=== PATIENT | female | born 1955 | race Caucasian/White ===

== ENCOUNTER 2016-12-12 19:14 | Inpatient (IN) | payer BC ==
[2016-12-12] MEDS ORDERED: NS 0.9% 1000 ML* 2,000 ML IV ONE (20:27)
[2016-12-12] MEDS ORDERED: Ondansetron INJ* 2 MG/ML VIAL IV ONE (20:27)
[2016-12-12] MEDS ORDERED: Famotidine IV* 10 MG/ML 2 ML (20 mg) IV ONE (20:27)
--- NOTE | 2016-12-12 20:38 | RAD ---
INDICATION: Cough. COMPARISON: Comparison is made with a prior chest x-ray study from January 27, 2006. TECHNIQUE: A portable view of the chest was obtained. FINDINGS: Cardiac and mediastinal contours appear to be within normal limits. The lungs are clear. No pleural effusion is seen. IMPRESSION: NO EVIDENCE FOR ACUTE DISEASE.
[2016-12-12 20:39] LABS: Hematocrit 33 % (35-47); Hemoglobin 11.1 g/dl (12.0-16.0); Mean Corpuscular HGB Conc 34 g/dl (31-36); Mean Corpuscular Hemoglobin 29 pg (27-31); Mean Corpuscular Volume 85 fL (80-97); Mean Platelet Volume 8 um3 (7.4-10.4); Red Blood Count 3.84 10^6/ul (4.0-5.4); Red Cell Distribution Width 12 % (10.5-15); White Blood Count 17.7 10^3/ul (3.5-10.8)
[2016-12-12 20:55] LABS: ALT 59 U/L (7-52); AST 42 U/L (13-39); Albumin 3.3 g/dL (3.2-5.2); Alkaline Phosphatase 78 U/L (34-104); Amylase 13 U/L (29-103); Anion Gap 7 mmol/L (2-11); BUN/Creatinine Ratio 7.3 (8-20); Blood Urea Nitrogen 4 mg/dL (6-24); CO2 Carbon Dioxide 23 mmol/L (22-32); Calcium 8.6 mg/dL (8.6-10.3); Chloride 90 mmol/L (101-111); EGFR African American 144.5 (>60); EGFR Non-African American 112.4 (>60); Globulin 3.5 g/dL (2-4); Glucose 152 mg/dL (70-100); Lipase < 10 U/L (11.0-82.0); Potassium 3.6 mmol/L (3.5-5.0); Sodium 120 mmol/L (133-145); Total Protein 6.8 g/dL (6.4-8.9)
--- NOTE | 2016-12-12 21:53 | ED ---
Albert Wyman Billy, scribed for Ramirez Shen MD on 12/12/16 at 2023 . Complex/Multi-Sys Presentation - HPI Summary HPI Summary: Patient is a 61 year-old female coming to [facility] for evaluation of one month of intermittent flu-like symptoms. She describes decreased appetite, nausea, fatigue, and epigastric pain. Her symptoms were worse today; she presents with fever. Nothing has made her symptoms better/worse. She states that she has had similar symptoms in the past related to "dehydration." Last BM several days ago. - History Of Current Complaint Chief Complaint: EDFluSymptoms Time Seen by Provider: 12/12/16 20:07 Hx Obtained From: Patient Onset/Duration: Gradual Onset, Lasting Weeks, Still Present Timing: Intermittent, Lasting: Severity Currently: Moderate Severity Initially: Moderate Aggravating Factor(s): none Alleviating Factor(s): none Associated Signs And Symptoms: Positive: Nausea, Abdominal Pain, Decreased Oral Intake, Fever, Other - fatigue. Negative: Vomiting, Diarrhea - Allergies/Home Medications Allergies/Adverse Reactions: Allergies Allergy/AdvReac Type Severity Reaction Status Date / Time Sulfa Antibiotics Allergy Hives Verified 01/06/15 20:53 PMH/Surg Hx/FS Hx/Imm Hx Endocrine/Hematology History: Denies: Hx Diabetes Cardiovascular History: Denies: Hx Hypertension Neurological History: Reports: Hx Migraine - Surgical History Surgery Procedure, Year, and Place: lumpectomy Infectious Disease History: No Infectious Disease History: Denies: Traveled Outside the [place] in Last 30 Days - Family History Known Family History: Positive: Cardiac Disease - mother, Other - cancer - Social History Alcohol Use: None Substance Use Type: Reports: None Smoking Status (MU): Never Smoked Tobacco Review of Systems Positive: Fever, Fatigue Positive: Abdominal Pain, Nausea, Other - decreased appetite. Negative: Vomiting, Diarrhea All Other Systems Reviewed And Are Negative: Yes Physical Exam - Summary Physical Exam Summary: VITAL SIGNS: Reviewed. GENERAL: Patient is a well developed and nourished female who is lying comfortable in the stretcher. Patient is not in any acute respiratory distress. HEAD AND FACE: No signs of trauma. No ecchymosis, hematomas or skull depressions. No sinus tenderness. EYES: PERRLA, EOMI x 2, No injected conjunctiva, no nystagmus. EARS: Hearing grossly intact. Ear canals and tympanic membranes are within normal limits. MOUTH: Dry nasal and oral mucosa. NECK: Supple, trachea is midline, no adenopathy, no JVD, no carotid bruit, no c- spine tenderness, neck with full ROM. CHEST: Symmetric, no tenderness at palpation LUNGS: Clear to auscultation bilaterally. No wheezing or crackles. CVS: Regular rate and rhythm, S1 and S2 present, no murmurs or gallops appreciated. ABDOMEN: Soft, non-tender. No signs of distention. No rebound no guarding, and no masses palpated. Bowel sounds are normal. EXTREMITIES: FROM in all major joints, no edema, no cyanosis or clubbing. NEURO: Alert and oriented x 3. No acute neurological deficits. Speech is normal and follows commands. SKIN: Dry and warm Triage Information Reviewed: Yes Vital Signs On Initial Exam: Initial Vitals Temp Pulse Resp BP Pulse Ox 102.1 F 94 16 124/62 98 12/12/16 19:26 12/12/16 19:26 12/12/16 19:26 12/12/16 19:26 12/12/16 19:26 Vital Signs Reviewed: Yes Diagnostics - Vital Signs Vital Signs Temp Pulse Resp BP Pulse Ox 12/12/16 19:26 102.1 F 94 16 124/62 98 - Laboratory Lab Results: Lab Results 12/12/16 Range/Units 20:30 WBC 17.7 H (3.5-10.8) 10^3/ul RBC 3.84 L (4.0-5.4) 10^6/ul Hgb 11.1 L (12.0-16.0) g/dl Hct 33 L (35-47) % MCV 85 (80-97) fL MCH 29 (27-31) pg MCHC 34 (31-36) g/dl RDW 12 (10.5-15) % Plt Count 162 (150-450) 10^3/ul MPV 8 (7.4-10.4) um3 Neut % (Auto) 89.5 H (38-83) % Lymph % (Auto) 3.8 L (25-47) % [place] % (Auto) 6.1 (1-9) % Eos % (Auto) 0.2 (0-6) % Baso % (Auto) 0.4 (0-2) % Absolute Neuts (auto) 15.9 H (1.5-7.7) 10^3/ul Absolute Lymphs (auto) 0.7 L (1.0-4.8) 10^3/ul Absolute Monos (auto) 1.1 H (0-0.8) 10^3/ul Absolute Eos (auto) 0 (0-0.6) 10^3/ul Absolute Basos (auto) 0.1 (0-0.2) 10^3/ul Absolute Nucleated RBC 0 10^3/ul Nucleated RBC % 0 Result Diagrams: 12/12/16 20:30 12/12/16 20:30 Lab Statement: Any lab studies that have been ordered have been reviewed, and results considered in the medical decision making process. - Radiology CXR Xray Interpretation: No Acute Changes Radiology Interpretation Completed By: Radiologist Complex Multi-Symp Course/Dx Assessment/Plan: Patient is a 61 year-old female coming to [facility] for evaluation of one month of intermittent flu-like symptoms. She describes decreased appetite , nausea, fatigue, and epigastric pain. Her symptoms were worse today; she presents with fever. Nothing has made her symptoms better/worse. She states that she has had similar symptoms in the past related to "dehydration." Last BM several days ago. Bloodwork shows WBC of 17.7, H&H of 11.1/33, and platelets of 162. Sodium of 120, chloride 90, glucose 152, CRP 200. Influenza A and B are negative, rapid stress negative. CXR shows no acute intrathoracic pathology. In the ED course, pt was given 2L of fluids. Patient has not been unable to give urine due to dehydration. At this point, since the patient is hyponatremic, increased CRP, increased WBC, I discussed my physical exam findings with Dr. Kimbrough who accepted the patient for admission. The patient is hemodynamically stable, A&Ox3. I did not start any antibiotics since I do not know the source of the infection. Dr. Kimbrough is aware and he agrees. - Diagnoses Differential Diagnoses/HQI/PQRI: Other - URI, Flu, Pharyngitis, Provider Diagnoses: Hyponatremia, Dehydration, Leukocytosis - Physician Notifications Discussed Care Of Patient With: Dr. Kimbrough (hospitalist) @ 2130: accepts admission. Discharge - Discharge Plan Condition: Stable Disposition: ADMITTED TO [facility] Referrals: Keegan Arteaga, [employer] [Primary Care Provider] - The documentation as recorded by the Albert clay Billy accurately reflects the service I personally performed and the decisions made by me, Ramirez Shen MD.
[2016-12-12] MEDS ORDERED: Ondansetron INJ* 2 MG/ML VIAL IV PRN (22:35)
[2016-12-12] MEDS ORDERED: Acetaminophen TAB* 325 MG PO PRN (22:35)
[2016-12-12] MEDS: NS 0.9% w/ 20 Meq KCL 1000 ML* 1,000 ML IV SCH (23:09)
[2016-12-13] MEDS: cefTRIAXone VIAL(*) 1,000 MG in NS 0.9% 50 ML* 50 ML IVPB SCH (01:24)
[2016-12-13] MEDS: Azithromycin IV(*) 500 MG in NS 0.9% 250 ML* 250 ML IVPB SCH (01:51)
--- NOTE | 2016-12-13 06:29 | HP ---
ADMISSION HISTORY AND PHYSICAL: DATE OF ADMISSION: 12/12/16 CHIEF COMPLAINT: Flu-like symptoms. HISTORY OF PRESENT ILLNESS: Ms. Spangler is a 61-year-old woman with minimal past medical history who complains of waxing and waning of sore throat, cough, and runny nose for the past month. Initially, she had nasal congestion, sneezing, which evolved into a cough and sore throat. The cough was not associated with shortness of breath and fever. Since the cough is not resolving in the last week, she has been more exhausted and complains of myalgias. She has had some night sweats. The cough is largely resolved. The patient also has had one episode of syncope 3 days ago when she got up from the bed to go to the bathroom at night. She felt dizzy and presyncopal and fell on to the bed and slipped to the floor. Her helped her lie flat on the floor and it is unclear whether she was fully unconscious or just not talking. After a few minutes, she was talking again and she was able to get herself back to bed. The patient does report some pain in her left lower ribcage, occurred after lying on the couch for a few days. She has been taking ibuprofen for this pain. There is some slight discomfort in her chest, which was worse with deep breath but she denies that this is pain. PAST MEDICAL HISTORY: She denies a history of asthma. She has had hyponatremia at times between levels 120 to 131 in 2013 to 2014, which have not been explained. She also reports a history of Lyme disease. PAST SURGICAL HISTORY: Lumpectomy in the left breast for benign breast mass. MEDICATIONS ON ADMISSION: 1. Calcium with vitamin D one tab p.o. q. day. 2. Premarin cream per vagina once a week. 3. Ibuprofen as needed. ALLERGIES: SULFA DRUGS, SULFONAMIDES. SOCIAL HISTORY: She works as an artist. She is . She has no children. She quit tobacco, age 31. Drinks alcohol rarely. No recreational drugs. FAMILY HISTORY: Notable for mother of heart failure. Father of multiple myeloma. One brother brother is alive with colon cancer. One brother of esophageal cancer. She has a grandmother with esophageal cancer and mother had breast cancer. REVIEW OF SYSTEMS: The patient denies any fevers or anorexia. The patient denies any chest pain other than mentioned above. The patient denies any hemoptysis. The patient denies any nausea, vomiting, diarrhea, constipation or abdominal pain. The patient denies any focal weakness, but feels weak all over. Remainder of the 14- point review of systems negative other than mentioned in the HPI. PHYSICAL EXAMINATION GENERAL: She is alert and in no acute distress. VITAL SIGNS: Temperature 38.9, pulse 94, respirations 16, blood pressure is 124 /62, and oxygen saturation 98%. HEENT: Head is normocephalic, atraumatic. Sclerae are anicteric. Pupils are equal, round, reactive to light and accommodation. Oropharynx is moist, no lesions. NECK: No JVD, no carotid bruits, no thyromegaly. LUNGS: There are rales at the right base. No wheezes. HEART: Regular rate and rhythm. No murmurs or gallops. ABDOMEN: Soft, nontender and nondistended. Positive bowel sounds. No hepatosplenomegaly. EXTREMITIES: No peripheral edema. Dorsalis pedis pulses are 1+ bilaterally. NEUROLOGIC: Cranial nerves II through XII are intact. Motor strength is 5/5 throughout. Deep tendon reflexes are symmetric. LABORATORY DATA: Sodium 120, potassium 3.6, chloride 90, bicarb 23, BUN 4, creatinine 0.55, glucose 152. Calcium 8.6, albumin 3.3, AST 42, ALT 59, bilirubin 1.3. CRP 200.9, amylase 13, lipase 10. White count 17.7, hemoglobin 11.1, hematocrit 33%, platelets 162. Influenza A and B negative. Rapid strep is negative. Portable chest shows no infiltrates or effusions. ASSESSMENT AND PLAN: A 61-year-old woman presenting with waxing and waning flu - like symptoms and hyponatremia over the last month. The patient appears to be have pneumonia clinically on exam, although this is not seen on chest x-ray. She will have repeat chest x-ray PA and lateral in the morning. 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 She also seems prone to dehydration , hyponatremia based on her history. The patient will be admitted to hospital for observation. She has hyponatremia and hypovolemia, so this should be corrected with repletion of volume with crystalloids. We will check her serum osmolality and sodium in the morning. The patient also has elevated white count likely due to pneumonia. It is possible that she has something more concerning such as leukemia with her night sweats and prolonged illness and elevated white count. For now, she will be treated for pneumonia with ceftriaxone and azithromycin and white count will be rechecked in the morning. CODE STATUS: Full. DVT prophylaxis will be with embolism stockings. If her sodium improves and she is tolerating liquids tomorrow, she can likely be discharged to home. CC: Dr. Mohr in [facility]* [id number]/[facility] #: [id number] [facility]
[2016-12-13 06:32] LABS: Hematocrit 31 % (35-47); Hemoglobin 10.5 g/dl (12.0-16.0); Mean Corpuscular HGB Conc 34 g/dl (31-36); Mean Corpuscular Hemoglobin 29 pg (27-31); Mean Corpuscular Volume 86 fL (80-97); Mean Platelet Volume 8 um3 (7.4-10.4); Red Blood Count 3.65 10^6/ul (4.0-5.4); Red Cell Distribution Width 13 % (10.5-15); White Blood Count 14.8 10^3/ul (3.5-10.8)
[2016-12-13 06:44] LABS: BUN/Creatinine Ratio 8.9 (8-20); EGFR African American 182.2 (>60); EGFR Non-African American 141.6 (>60); Potassium 3.7 mmol/L (3.5-5.0)
--- NOTE | 2016-12-13 08:22 | RAD ---
INDICATION: Right lower lobe rales, pneumonia. COMPARISON: Comparison is made with prior chest x-ray studies from January 27, 2006 and December 12, 2016. TECHNIQUE: Dual-energy PA and lateral views of the chest were obtained. FINDINGS: The heart is within normal limits in size. Mediastinal and hilar contours appear within normal limits. There is a infiltrate present at the right lung base which appears new with a convex superior border. The left lung appears clear. There is a trace right pleural effusion. IMPRESSION: NEW MASSLIKE INFILTRATE AT THE RIGHT LUNG BASE. RECOMMEND FOLLOW-UP CHEST X-RAYS TO RESOLUTION.
[2016-12-13] MEDS: NS 0.9% w/ 20 Meq KCL 1000 ML* 1,000 ML IV SCH (09:02)
--- NOTE | 2016-12-13 16:43 | PN ---
Subjective Date of Service: 12/13/16 Interval History: Pt is feeling better than when she first got here. She is occasionally bringing up whitish sputum. She has also been having loose stools today. Objective Active Medications: Acetaminophen (Tylenol Tab*) 650 mg PO Q4H PRN PRN Reason: FEVER/HEADACHE Last Admin: 12/13/16 10:57 Dose: 650 mg Potassium Chloride/Sodium Chloride (Ns 0.9% W/ 20 Meq Kcl 1000 Ml*) 1,000 mls @ 150 mls/hr IV PER RATE JAYLEN Last Admin: 12/13/16 09:02 Dose: 150 mls/hr Ceftriaxone Sodium 1,000 mg/ (Sodium Chloride) 50 mls @ 200 mls/hr IVPB Q24H JAYLEN Last Admin: 12/13/16 01:24 Dose: 200 mls/hr Azithromycin 500 mg/ Sodium (Chloride) 250 mls @ 250 mls/hr IVPB Q24H JAYLEN Last Admin: 12/13/16 01:51 Dose: 250 mls/hr Ondansetron HCl (Zofran Inj*) 4 mg IV Q6H PRN PRN Reason: NAUSEA Last Admin: 12/13/16 02:35 Dose: 4 mg Vital Signs 12/12/16 12/12/16 12/13/16 23:00 23:30 00:51 Temperature 97.7 F Pulse Rate 76 70 68 Respiratory 18 Rate Blood Pressure 110/64 107/61 106/52 (mmHg) O2 Sat by Pulse 97 95 97 Oximetry 12/13/16 12/13/16 12/13/16 04:10 07:28 11:26 Temperature 99.6 F 99.1 F 99.4 F Pulse Rate 72 76 78 Respiratory 16 18 18 Rate Blood Pressure 103/45 121/60 112/60 (mmHg) O2 Sat by Pulse 99 99 98 Oximetry 12/13/16 15:29 Temperature 98.2 F Pulse Rate 78 Respiratory 16 Rate Blood Pressure 118/64 (mmHg) O2 Sat by Pulse 98 Oximetry Oxygen Devices in Use Now: None Appearance: Middle aged female sitting up in bed, NAD Eyes: No Scleral Icterus Ears/Nose/Mouth/Throat: Mucous Membranes Moist Respiratory: Symmetrical Chest Expansion and Respiratory Effort, - - diminished breath sounds R base Cardiovascular: NL Sounds; No Murmurs; No JVD, RRR, No Edema Abdominal: NL Sounds; No Tenderness; No Distention Extremities: No Clubbing, Cyanosis Skin: No Rash or Ulcers, No Nodules or Sclerosis Neurological: Alert and Oriented x 3 Result Diagrams: 12/13/16 06:10 12/13/16 16:42 Additional Lab and Data: Lab Results 12/12/16 Range/Units 20:30 WBC 17.7 H (3.5-10.8) 10^3/ul RBC 3.84 L (4.0-5.4) 10^6/ul Hgb 11.1 L (12.0-16.0) g/dl Hct 33 L (35-47) % MCV 85 (80-97) fL MCH 29 (27-31) pg MCHC 34 (31-36) g/dl RDW 12 (10.5-15) % Plt Count 162 (150-450) 10^3/ul MPV 8 (7.4-10.4) um3 Neut % (Auto) 89.5 H (38-83) % Lymph % (Auto) 3.8 L (25-47) % [place] % (Auto) 6.1 (1-9) % Eos % (Auto) 0.2 (0-6) % Baso % (Auto) 0.4 (0-2) % Absolute Neuts (auto) 15.9 H (1.5-7.7) 10^3/ul Absolute Lymphs (auto) 0.7 L (1.0-4.8) 10^3/ul Absolute Monos (auto) 1.1 H (0-0.8) 10^3/ul Absolute Eos (auto) 0 (0-0.6) 10^3/ul Absolute Basos (auto) 0.1 (0-0.2) 10^3/ul Absolute Nucleated RBC 0 10^3/ul Nucleated RBC % 0 Assess/Plan/Problems-Billing Ms Spangler is a 61 yo F who has a h/o asthma who presented to the ER with c/o flu-like symptoms and was admitted for community acquired pneumonia and hyponatremia. - Patient Problems (1) CAP (community acquired pneumonia) Current Visit: Yes Status: Acute Code(s): J18.9 - PNEUMONIA, UNSPECIFIED ORGANISM SNOMED Code(s): 994177829 Comment: Pt's WBC count is trending down. Check s pneumo and legionella urinary antigens. Obtain sputum culture. Continue ceftriaxone and azithromycin. Recheck CBC tomorrow. (2) Hyponatremia Current Visit: Yes Status: Acute Code(s): E87.1 - HYPO-OSMOLALITY AND HYPONATREMIA SNOMED Code(s): 51713424 Comment: Improving. Likely secondary to dehydration as her Na level improved with hydration. Will get follow up level tomorrow AM. Urine studies have been ordered however the will be obtained after she was hydrated. (3) DVT prophylaxis Current Visit: Yes Status: Acute Code(s): WIK7985 - SNOMED Code(s): 103090388 (4) Full code status Current Visit: Yes Status: Acute Code(s): Z78.9 - OTHER SPECIFIED HEALTH STATUS SNOMED Code(s): 282260135
[2016-12-13 17:07] LABS: Potassium 3.8 mmol/L (3.5-5.0)
[2016-12-13 17:33] LABS: Urine Bacteria Absent (Absent); Urine Bilirubin Negative (Negative); Urine Glucose Negative (Negative); Urine Nitrite Negative (Negative)
[2016-12-13] MEDS: Heparin VIAL(*) 5000 UNITS/ML VIAL (FIVE THOUSAND) SUBCUT SCH (20:17)
[2016-12-13] MEDS ORDERED: traZODone TAB* 50 MG TAB PO PRN (23:18)
[2016-12-14] MEDS: Azithromycin IV(*) 500 MG in NS 0.9% 250 ML* 250 ML IVPB SCH (01:14)
[2016-12-14] MEDS: cefTRIAXone VIAL(*) 1,000 MG in NS 0.9% 50 ML* 50 ML IVPB SCH (02:27)
[2016-12-14 06:07] LABS: Hematocrit 29 % (35-47); Hemoglobin 9.9 g/dl (12.0-16.0); Mean Corpuscular HGB Conc 34 g/dl (31-36); Mean Corpuscular Hemoglobin 29 pg (27-31); Mean Corpuscular Volume 85 fL (80-97); Mean Platelet Volume 8 um3 (7.4-10.4); Red Blood Count 3.39 10^6/ul (4.0-5.4); Red Cell Distribution Width 13 % (10.5-15); White Blood Count 9.6 10^3/ul (3.5-10.8)
[2016-12-14 06:17] LABS: BUN/Creatinine Ratio 8.8 (8-20); Calcium 8.3 mg/dL (8.6-10.3); EGFR African American 138.7 (>60); EGFR Non-African American 107.8 (>60); Potassium 3.5 mmol/L (3.5-5.0)
[2016-12-14] MEDS: Heparin VIAL(*) 5000 UNITS/ML VIAL (FIVE THOUSAND) SUBCUT SCH (09:31)
[2016-12-14 12:01] VITALS: BP 117/59
[2016-12-14] MEDS ORDERED: Polyethylene Glycol 3350* 17 GM PACKET PO PRN (12:03)
--- NOTE | 2016-12-14 14:15 | PN ---
Subjective Date of Service: 12/14/16 Interval History: Pt is feeling ok. She states that she has been coughing some more than usual. She feels that she did not sleep well at all last night due to her IV hurting, getting her Abx late, her roommates family being present late etc. She is anxious to go home. Objective Active Medications: Acetaminophen (Tylenol Tab*) 650 mg PO Q4H PRN PRN Reason: FEVER/HEADACHE Last Admin: 12/13/16 10:57 Dose: 650 mg Heparin Sodium (Porcine) (Heparin Vial(*)) 5,000 units SUBCUT Q12HR JAYLEN Last Admin: 12/14/16 09:31 Dose: 5,000 units Ceftriaxone Sodium 1,000 mg/ (Sodium Chloride) 50 mls @ 200 mls/hr IVPB Q24H JAYLEN Last Admin: 12/14/16 02:27 Dose: 200 mls/hr Azithromycin 500 mg/ Sodium (Chloride) 250 mls @ 250 mls/hr IVPB Q24H JAYLEN Last Admin: 12/14/16 01:14 Dose: 250 mls/hr Ondansetron HCl (Zofran Inj*) 4 mg IV Q6H PRN PRN Reason: NAUSEA Last Admin: 12/13/16 02:35 Dose: 4 mg Polyethylene Glycol/Electrolytes (Miralax*) 17 gm PO DAILY PRN PRN Reason: CONSTIPATION Trazodone HCl (Desyrel Tab*) 50 mg PO BEDTIME PRN PRN Reason: SLEEP Last Admin: 12/13/16 23:37 Dose: 50 mg Vital Signs 12/13/16 12/13/16 12/13/16 15:29 20:18 23:19 Temperature 98.2 F 98.6 F 99.7 F Pulse Rate 78 81 81 Respiratory 16 18 16 Rate Blood Pressure 118/64 110/64 129/64 (mmHg) O2 Sat by Pulse 98 100 95 Oximetry 12/14/16 12/14/16 12/14/16 03:19 07:33 11:02 Temperature 99.2 F 98.6 F Pulse Rate 80 73 Respiratory 16 20 18 Rate Blood Pressure 117/57 112/65 (mmHg) O2 Sat by Pulse 95 93 Oximetry 12/14/16 11:30 Temperature 97.4 F Pulse Rate 72 Respiratory 20 Rate Blood Pressure 117/59 (mmHg) O2 Sat by Pulse 99 Oximetry Oxygen Devices in Use Now: None Appearance: Middle aged female lying in bed, NAD Eyes: No Scleral Icterus Ears/Nose/Mouth/Throat: Mucous Membranes Moist Respiratory: Symmetrical Chest Expansion and Respiratory Effort, - - Few RLL crackles Cardiovascular: NL Sounds; No Murmurs; No JVD, RRR, No Edema Abdominal: NL Sounds; No Tenderness; No Distention Extremities: No Clubbing, Cyanosis Skin: No Rash or Ulcers, No Nodules or Sclerosis Neurological: Alert and Oriented x 3 Result Diagrams: 12/14/16 05:29 12/14/16 05:29 Additional Lab and Data: Lab Results 12/12/16 Range/Units 20:30 WBC 17.7 H (3.5-10.8) 10^3/ul RBC 3.84 L (4.0-5.4) 10^6/ul Hgb 11.1 L (12.0-16.0) g/dl Hct 33 L (35-47) % MCV 85 (80-97) fL MCH 29 (27-31) pg MCHC 34 (31-36) g/dl RDW 12 (10.5-15) % Plt Count 162 (150-450) 10^3/ul MPV 8 (7.4-10.4) um3 Neut % (Auto) 89.5 H (38-83) % Lymph % (Auto) 3.8 L (25-47) % [place] % (Auto) 6.1 (1-9) % Eos % (Auto) 0.2 (0-6) % Baso % (Auto) 0.4 (0-2) % Absolute Neuts (auto) 15.9 H (1.5-7.7) 10^3/ul Absolute Lymphs (auto) 0.7 L (1.0-4.8) 10^3/ul Absolute Monos (auto) 1.1 H (0-0.8) 10^3/ul Absolute Eos (auto) 0 (0-0.6) 10^3/ul Absolute Basos (auto) 0.1 (0-0.2) 10^3/ul Absolute Nucleated RBC 0 10^3/ul Nucleated RBC % 0 Microbiology and Other Data: Microbiology 12/13/16 17:15 Legionella Urinary Antigen - Final Urine Negative Legionella Streptococcus pneumoniae Ag Screen - Final Negative S. pneumo Antigen Assess/Plan/Problems-Billing Ms Spangler is a 61 yo F who has a h/o asthma who presented to the ER with c/o flu-like symptoms and was admitted for community acquired pneumonia and hyponatremia. - Patient Problems (1) CAP (community acquired pneumonia) Current Visit: Yes Status: Acute Code(s): J18.9 - PNEUMONIA, UNSPECIFIED ORGANISM SNOMED Code(s): 889079815 Comment: Pt's WBC count has normalized today. She is coughing some more today. Will d/c home on levaquin for 5 more days. (2) Hyponatremia Current Visit: Yes Status: Acute Code(s): E87.1 - HYPO-OSMOLALITY AND HYPONATREMIA SNOMED Code(s): 86006101 Comment: Much better today. Na level 130-I suspect dehydration as the cause as she responded to IVF. Follow up labs later this week. (3) Anemia Current Visit: Yes Status: Acute Code(s): D64.9 - ANEMIA, UNSPECIFIED SNOMED Code(s): 679476945 Comment: H/H has been falling without signs/symptoms of bleeding. Likely dilutional. Check CBC later this week with BMP draw. (4) DVT prophylaxis Current Visit: Yes Status: Acute Code(s): AXN3049 - SNOMED Code(s): 424582621 Comment: SQ heparin (5) Full code status Current Visit: Yes Status: Acute Code(s): Z78.9 - OTHER SPECIFIED HEALTH STATUS SNOMED Code(s): 216498972
--- NOTE | 2016-12-15 08:39 | DS ---
DISCHARGE SUMMARY: DATE OF ADMISSION: 12/12/16 DATE OF DISCHARGE: 12/14/16 PRIMARY CARE PROVIDER: Keegan Arteaga NP PRINCIPAL DIAGNOSES: 1. Community acquired pneumonia. 2. Hyponatremia - resolved. DISCHARGE MEDICATIONS: 1. Calcium Plus D one tab p.o. daily. 2. Premarin cream applied vaginally daily. 3. Levaquin 500 mg p.o. daily x5 days. HOSPITAL COURSE: Ms. Spangler is a 61-year-old female who has no significant past medical history, who presented to the emergency room on 12/12/16 with complaints of flu-like symptoms. The patient had symptoms for approximately 1 month, waxing and waning sore throat, cough and runny nose. Additionally, she had nasal congestion and sneezing. She has had no shortness of breath or fever. Three days prior to the admission, the patient had an episode of syncope when she got up from bed to the bathroom. The patient was admitted for a presumed community-acquired pneumonia and treatment of her hyponatremia. The patient initially had an elevated white blood cell count of 17,700. This trended down with treatment on ceftriaxone and azithromycin. The patient has been coughing and bringing up scant amounts of sputum. She will complete 5 more days of Levaquin on discharge. In terms of hyponatremia, the etiology of this was not completely clear. The patient did, however, respond to normal saline making me believe that her hyponatremia was likely secondary to volume depletion. Her sodium level is 130 on the day of discharge. The patient will need a followup BMP on 12/17/16. The patient was also noted to be mildly anemic on presentation to the hospital with a hemoglobin of 11.1. This trended down to 9.9 on the day of discharge. There have been no signs or symptoms of bleeding. I suspect this is delusional. I have asked that the patient get a followup CBC on 12/17/16. FOLLOW-UP CONCERNS: The patient is being discharged to home today, 12/14/16. ACTIVITY LEVEL: As tolerated. DIET: Regular. CONDITION ON DISCHARGE: Stable. The patient is to follow up with Keegan Arteaga NP, on 12/18/16 at 10:15 a.m. TIME SPENT: Thirty-five minutes were spent discharging this patient. CC: Keegan Arteaga NP* [id number]/[facility] #: [id number] [facility]
== END 2016-12-14 16:16 | disposition home or self-care (01) | DRG 139 ==
LOC: ED 19:14 → MEDTELE 22:32 → OBSVTOIN 12-13 10:00
PROVIDERS: ADMIT Internal Medicine; ATTEND Hospitalist
DX: J18.9 Pneumonia, unspecified organism (principal); E87.1 Hypo-osmolality and hyponatremia; E86.1 Hypovolemia; G43.909 Migraine, unspecified, not intractable, without status migrainosus; E86.0 Dehydration; D64.9 Anemia, unspecified; Z87.891 Personal history of nicotine dependence; Z72.89 Other problems related to lifestyle; Z82.49 Family history of ischemic heart disease and other diseases of the circulatory system; Z80.0 Family history of malignant neoplasm of digestive organs; Z80.3 Family history of malignant neoplasm of breast; Z82.0 Family history of epilepsy and other diseases of the nervous system; Z88.2 Allergy status to sulfonamides
CPT/HCPCS: 36415; 71010; 71020; 80048; 80051; 80053; 81003; 81015; 82150; 83605; 83690; 83930; 83935; 84145; 84300; 85025; 86140; 86141; 87040; 87502; 87651; 87899; A9270-GY; G0378; J0456; J0696; J1644; J2405